=== PATIENT | male | born 1970 | race African-American/Black ===

== ENCOUNTER 2024-03-17 08:36 | Emergency (ER) | payer OTHER ==
[~2024-03-17] VITALS: Ht 172.7 cm; Wt 108.9 kg
[2024-03-17 09:10] VITALS: PULSE 79; RESP 15; TEMP 97.6; O2SAT 100
[2024-03-17] MEDS ORDERED: MUCINEX DM ER1 EACH PO (11:29)
== END 2024-03-17 12:48 | disposition home or self-care (01) ==
LOC: ER 09:49
DX: R05.9 Cough, unspecified (principal); R42 Dizziness and giddiness; I10 Essential (primary) hypertension; E11.9 Type 2 diabetes mellitus without complications
CPT/HCPCS: 71045; 99284